=== PATIENT | male | born 1950 | race Hispanic/Latino ===

== ENCOUNTER 2020-06-05 12:13 | Emergency (ER) | payer OTHER, MEDICARE ==
[2020-06-05] MEDS ORDERED: LIDOCAINE 5% TOPICAL PATCH TP ONE (12:45)
[2020-06-05 12:46] LABS: BASOPHILS % (AUTO) 0.5 % (0.0-5.0); EOSINOPHILS % (AUTO) 0.9 % (0.0-8.0); HEMATOCRIT 50.8 % (42-54); MEAN CORPUSCULAR HEMOGLOBIN 28.4 pg (27.0-33.0); MEAN CORPUSCULAR HGB CONC 34.6 g/dL (32.0-36.0); MEAN CORPUSCULAR VOLUME 81.9 fL (79-99); NEUTROPHILS % (AUTO) 50.3 % (40.0-77.0); PLATELET COUNT (AUTO) 260 K/uL (130-400); RED CELL DISTRIBUTION WIDTH 12.4 % (11.0-15.5); WHITE BLOOD COUNT (AUTO) 10.8 K/uL (4.8-10.8)
[2020-06-05 13:04] LABS: INR 0.91 (0.85-1.15); PARTIAL THROMBOPLASTIN TIME 23.3 SEC (26.3-35.5); PROTHROMBIN TIME 9.9 SEC (9.6-11.6)
[2020-06-05 13:05] LABS: CREATININE 1.1 mg/dL (0.5-1.5); POTASSIUM 3.5 mmol/L (3.5-5.1)
[2020-06-05 13:10] LABS: ALBUMIN 3.8 g/dL (3.5-5.0); BILIRUBIN,TOTAL 0.5 mg/dL (0.2-1.0); TOTAL PROTEIN, SERUM 8.2 g/dL (6.0-8.3)
[2020-06-05] MEDS ORDERED: ACETAMINOPHEN 325 MG TAB ONE (15:04)
[2020-06-05] MEDS ORDERED: INSULIN HUMULIN R 100 UNIT/ML 3ML ONE (15:05)
[2020-06-05] MEDS ORDERED: SODIUM CHLORIDE 0.9% 500ML 500 ML IV ONE (15:06)
== END 2020-06-05 17:33 | disposition home or self-care (01) ==
LOC: EDH 12:13
DX: M25.512 Pain in left shoulder (principal); M25.511 Pain in right shoulder; M79.602 Pain in left arm; R10.12 Left upper quadrant pain; E11.65 Type 2 diabetes mellitus with hyperglycemia; E78.00 Pure hypercholesterolemia, unspecified; I10 Essential (primary) hypertension
CPT/HCPCS: 36415; 71045; 72072; 80053; 82550; 82948; 83690; 84484 ×2; 85025; 85610; 85730; 93005 ×2; 96374; 99285; J1815; J7040

== ENCOUNTER 2020-08-26 10:36 | Emergency (ER) | payer OTHER, MEDICARE ==
[2020-08-26 11:11] LABS: BASOPHILS % (AUTO) 0.9 % (0.0-5.0); EOSINOPHILS % (AUTO) 1.8 % (0.0-8.0); HEMATOCRIT 48.8 % (42-54); LYMPHOCYTES % (AUTO) 32.1 % (21.0-51.0); MEAN CORPUSCULAR VOLUME 82.7 fL (79-99); MONOCYTES % (AUTO) 8.5 % (3.0-13.0); NEUTROPHILS % (AUTO) 56.3 % (40.0-77.0); PLATELET COUNT (AUTO) 237 K/uL (130-400); RED CELL DISTRIBUTION WIDTH 12.5 % (11.0-15.5); WHITE BLOOD COUNT (AUTO) 7.8 K/uL (4.8-10.8)
[2020-08-26 11:13] LABS: CARBON DIOXIDE 30 mmol/L (21-32); CHLORIDE 100 mmol/L (101-111); CREATININE 0.9 mg/dL (0.5-1.5); GLOMERULAR FILTR. RATE CALC 89 mL/min (>60); GLUCOSE,RANDOM 256 mg/dL (70-105); SODIUM SERUM 139 mmol/L (136-145); UREA NITROGEN, BLOOD 17 mg/dL (7-18)
[2020-08-26] MEDS ORDERED: ACETAMINOPHEN-CODEINE 300/30MG TAB ONE (11:16)
[2020-08-26] MEDS ORDERED: KETOROLAC TROMETHAMINE 15MG/ML ONE (11:16)
[2020-08-26 11:17] LABS: ALANINE AMINOTRANSFERASE 19 U/L (12-78); ALBUMIN 3.9 g/dL (3.5-5.0); ASPARTATE AMINOTRANSFERASE 14 U/L (10-37); BILIRUBIN,TOTAL 0.6 mg/dL (0.2-1.0)
[2020-08-26 11:25] LABS: LIPASE < 50 U/L (114-286)
== END 2020-08-26 12:33 | disposition home or self-care (01) ==
LOC: EDH 10:36
DX: R10.84 Generalized abdominal pain (principal); E11.9 Type 2 diabetes mellitus without complications; E78.00 Pure hypercholesterolemia, unspecified; I10 Essential (primary) hypertension
CPT/HCPCS: 36415; 80053; 83690; 85025; 93005; 96374; 99284; J1885

== ENCOUNTER → 2020-10-13 | Outpatient (CLI) | payer OTHER, MEDICARE | END | disposition home or self-care (01) | LOC: OIH 11:04 | PROVIDERS: ATTEND Internal Medicine | DX: I10 Essential (primary) hypertension (principal); M54.5 Low back pain | CPT/HCPCS: 71046; 72070; 72100 ==

== ENCOUNTER 2022-02-01 21:05 | Inpatient (IN) | payer OTHER, MEDICARE ==
[~2022-02-01] VITALS: Ht 157.5 cm; Wt 70.7 kg
[2022-02-01] MEDS ORDERED: ONDANSETRON 4MG INJ ONE (21:07)
[2022-02-01] MEDS ORDERED: ACETAMINOPHEN 650 MG SUPPOSITORY RC ONE ×2 (21:08→21:30)
[2022-02-01] MEDS ORDERED: 0.9%NACL 1000ML 2,000 ML IV ONE (21:08)
[2022-02-01 21:22] LABS: BASOPHILS % (AUTO) 0.3 % (0.0-5.0); HEMATOCRIT 49.7 % (42-54); LYMPHOCYTES % (AUTO) 6.7 % (21.0-51.0); MEAN CORPUSCULAR HEMOGLOBIN 28.8 pg (27.0-33.0); MEAN CORPUSCULAR HGB CONC 34.8 g/dL (32.0-36.0); MEAN CORPUSCULAR VOLUME 82.8 fL (79-99); MONOCYTES % (AUTO) 8.7 % (3.0-13.0); NEUTROPHILS % (AUTO) 83.9 % (40.0-77.0); PLATELET COUNT (AUTO) 164 K/uL (130-400); RED CELL DISTRIBUTION WIDTH 12.7 % (11.0-15.5); WHITE BLOOD COUNT (AUTO) 12.7 K/uL (4.8-10.8)
[2022-02-01 21:28] LABS: APPEARANCE,URINE CLEAR (CLEAR); BILIRUBIN,URINE NEGATIVE (NEGATIVE); COLOR,URINE YELLOW (YELLOW); GLUCOSE, URINE (UA) NEGATIVE (NEGATIVE); KETONES,URINE 15 mg/dL (NEGATIVE); LEUKOCYTE ESTERASE ,URINE NEGATIVE (NEGATIVE); NITRATE,URINE NEGATIVE (NEGATIVE); OCCULT BLOOD,URINE NEGATIVE (NEGATIVE); PH,URINE 7.5 (5.0-8.0); PROTEIN,URINE NEGATIVE (NEGATIVE); UROBILINOGEN,URINE 0.2 mg/dL (0.2-1.0)
[2022-02-01] MEDS ORDERED: 0.9%NACL 1000ML 1,000 ML IV ONE (21:30)
[2022-02-01 21:37] LABS: CREATININE 1.1 mg/dL (0.5-1.5); POTASSIUM 4.1 mmol/L (3.5-5.1)
[2022-02-01 21:46] LABS: ALBUMIN 3.7 g/dL (3.5-5.0); BILIRUBIN,TOTAL 0.8 mg/dL (0.2-1.0)
[2022-02-01] MEDS ORDERED: ZOSYN 3.375GM +NS 50ML IV SCH (22:00)
[2022-02-01 22:13] LABS: ABG BASE EXCESS -5.7 mmol/L (-2.0-3.0); ABG HCO3 17.7 mmol/L (21.0-28.0); ABG OXYGEN SATURATION 94.5 % (95.0-99.0); ABG PCO2 30 mmHg (35-48)
[2022-02-01] MEDS ORDERED: IOHEXOL-350 75 ML VIAL IV ONE (22:23)
[2022-02-02] MEDS ORDERED: PHARMACY COMMUNICATION MISC SCH
[2022-02-02] MEDS ORDERED: ACETAMINOPHEN 650 MG SUPPOSITORY RC PRN
[2022-02-02] MEDS ORDERED: HYDRALAZINE 20MG/ML VIAL IV PRN
[2022-02-02] MEDS ORDERED: ONDANSETRON 4MG INJ IVP PRN
[2022-02-02] MEDS ORDERED: LABETALOL 20MG SYG IV PRN
[2022-02-02] MEDS ORDERED: CLONIDINE HCL 0.1 MG TABLET PO PRN
[2022-02-02] MEDS ORDERED: ACETAMINOPHEN 325 MG TAB PO PRN
[2022-02-02] MEDS ORDERED: MORPHINE 4 MG SYG IVP PRN
[2022-02-02] MEDS ORDERED: LACTULOSE 20 GM/30 ML UDCUP PO PRN
[2022-02-02] MEDS ORDERED: ERGOCALCIFEROL (VITAMIN D2) 50,000 UNIT CAPSULE PO ONE
[2022-02-02] MEDS ORDERED: TEMAZEPAM 15 MG CAPSULE PO PRN
[2022-02-02] MEDS ORDERED: PHARMACY COMMUNICATION**REMDESIVIR MISC SCH (00:30)
[2022-02-02] MEDS: CEFTRIAXONE 1G VIAL IVP SCH ×2 (00:59→12:06)
[2022-02-02] MEDS: DEXAMETHASONE SOD PHOSPHATE 4 MG/ML 1ML VIAL IVP SCH (00:59)
[2022-02-02] MEDS: 0.9%NACL 1000ML 1,000 ML IV SCH ×2 (00:59→10:00)
[2022-02-02] MEDS ORDERED: TAMS-1 PO (01:29)
[2022-02-02] MEDS ORDERED: ATOR40TA71 PO (01:29)
[2022-02-02] MEDS ORDERED: LISI20TA24 PO (01:29)
[2022-02-02] MEDS ORDERED: AMLO-258 PO (01:29)
[2022-02-02] MEDS ORDERED: AZITHROMYCIN 500MG+NS 250ML 250 ML ONE (02:16)
[2022-02-02] MEDS: AZITHROMYCIN 500MG+NS 250ML IVPB SCH (02:19)
[2022-02-02] MEDS ORDERED: IPRATROPIUM/ALBUTEROL SULFATE 3 ML SOLUTION IH ONE ×2 (02:25→06:20)
[2022-02-02] MEDS: IPRATROPIUM/ALBUTEROL SULFATE 3 ML SOLUTION IH SCH ×6 (02:28→22:42)
[2022-02-02 03:39] LABS: BASOPHILS % (AUTO) 0.2 % (0.0-5.0); HEMATOCRIT 46.5 % (42-54); LYMPHOCYTES % (AUTO) 3.9 % (21.0-51.0); MEAN CORPUSCULAR HEMOGLOBIN 28.6 pg (27.0-33.0); MEAN CORPUSCULAR HGB CONC 34.6 g/dL (32.0-36.0); MEAN CORPUSCULAR VOLUME 82.7 fL (79-99); MONOCYTES % (AUTO) 6.1 % (3.0-13.0); NEUTROPHILS % (AUTO) 89.3 % (40.0-77.0); PLATELET COUNT (AUTO) 165 K/uL (130-400); RED BLOOD CELL COUNT(AUTO) 5.62 MIL/uL (4.50-6.20); RED CELL DISTRIBUTION WIDTH 12.8 % (11.0-15.5); WHITE BLOOD COUNT (AUTO) 17.5 K/uL (4.8-10.8)
[2022-02-02 03:51] LABS: CREATININE 1.1 mg/dL (0.5-1.5); POTASSIUM 4.3 mmol/L (3.5-5.1)
[2022-02-02 04:01] LABS: ALBUMIN 3.1 g/dL (3.5-5.0); BILIRUBIN,TOTAL 0.6 mg/dL (0.2-1.0)
[2022-02-02 04:29] VITALS: BP 132/71
[2022-02-02] MEDS: INSULIN LISPRO 100 UNIT/ML 3ML SQ SCH ×4 (06:25→20:54)
[2022-02-02 07:51] VITALS: BP 141/84
[2022-02-02 08:28] LABS: ABG BASE EXCESS -3.3 mmol/L (-2.0-3.0); ABG HCO3 20.4 mmol/L (21.0-28.0); ABG OXYGEN SATURATION 95.8 % (95.0-99.0); ABG PCO2 33 mmHg (35-48)
[2022-02-02] MEDS ORDERED: DOXYCYCLINE 100MG+NS 250ML IV SCH (09:00)
[2022-02-02] MEDS ORDERED: SOLU-MEDROL 40MG VIAL IVP SCH (09:00)
[2022-02-02] MEDS ORDERED: ENOXAPARIN SODIUM 40 MG/0.4 ML SYRINGE SQ SCH (09:00)
[2022-02-02] MEDS ORDERED: ENOXAPARIN SODIUM 60 MG/0.6 ML SQ ONE (09:00)
[2022-02-02] MEDS: ZINC SULFATE 220 CAPSULE PO SCH (09:58)
[2022-02-02] MEDS: ENOXAPARIN SODIUM 40 MG/0.4 ML SYRINGE SQ SCH (09:58)
[2022-02-02] MEDS: ASCORBIC ACID 500 MG TAB PO SCH (09:59)
[2022-02-02] MEDS ORDERED: BENZOCAINE/MENTH/CETYLPYRD CL 1 EACH LOZENGE MM PRN (11:30)
[2022-02-02 12:00] VITALS: BP 143/86
[2022-02-02 16:00] VITALS: BP 157/74
[2022-02-02] MEDS ORDERED: GUAIFENESIN-DM 200/20 MG 10 ML PO PRN (18:00)
[2022-02-02 20:00] VITALS: BP 129/66
[2022-02-02] MEDS ORDERED: 0.9% NACL 250ML 250 ML ONE (23:47)
[2022-02-03] VITALS: BP 145/87
[2022-02-03] MEDS: AZITHROMYCIN 500MG+NS 250ML IVPB SCH (00:05)
[2022-02-03] MEDS: DEXAMETHASONE SOD PHOSPHATE 4 MG/ML 1ML VIAL IVP SCH (00:05)
[2022-02-03] MEDS: CEFTRIAXONE 1G VIAL IVP SCH ×2 (00:06→12:27)
[2022-02-03] MEDS: IPRATROPIUM/ALBUTEROL SULFATE 3 ML SOLUTION IH SCH ×5 (02:39→23:22)
[2022-02-03 04:00] VITALS: BP 120/66
[2022-02-03 04:28] LABS: BASOPHILS % (AUTO) 0.1 % (0.0-5.0); HEMATOCRIT 45.5 % (42-54); LYMPHOCYTES % (AUTO) 6.4 % (21.0-51.0); MEAN CORPUSCULAR HEMOGLOBIN 28.8 pg (27.0-33.0); MEAN CORPUSCULAR HGB CONC 34.5 g/dL (32.0-36.0); MEAN CORPUSCULAR VOLUME 83.5 fL (79-99); NEUTROPHILS % (AUTO) 90.1 % (40.0-77.0); PLATELET COUNT (AUTO) 146 K/uL (130-400); RED BLOOD CELL COUNT(AUTO) 5.45 MIL/uL (4.50-6.20); RED CELL DISTRIBUTION WIDTH 12.7 % (11.0-15.5); WHITE BLOOD COUNT (AUTO) 13.5 K/uL (4.8-10.8)
[2022-02-03 04:44] LABS: BILIRUBIN,TOTAL 0.3 mg/dL (0.2-1.0); POTASSIUM 4.1 mmol/L (3.5-5.1)
[2022-02-03] MEDS: INSULIN LISPRO 100 UNIT/ML 3ML SQ SCH ×4 (06:30→20:31)
[2022-02-03 07:00] VITALS: BP 134/78
[2022-02-03] MEDS: ASCORBIC ACID 500 MG TAB PO SCH (08:55)
[2022-02-03] MEDS: ENOXAPARIN SODIUM 40 MG/0.4 ML SYRINGE SQ SCH (08:55)
[2022-02-03] MEDS: ZINC SULFATE 220 CAPSULE PO SCH (08:55)
[2022-02-03 11:00] VITALS: BP 145/77
[2022-02-03 16:00] VITALS: BP 138/90
[2022-02-03 20:00] VITALS: BP 130/70
[2022-02-04] VITALS: BP 124/68
[2022-02-04] MEDS ORDERED: 0.9% NACL 250ML 250 ML ONE (00:10)
[2022-02-04] MEDS: DEXAMETHASONE SOD PHOSPHATE 4 MG/ML 1ML VIAL IVP SCH (00:16)
[2022-02-04] MEDS: CEFTRIAXONE 1G VIAL IVP SCH ×2 (00:16→11:52)
[2022-02-04] MEDS: AZITHROMYCIN 500MG+NS 250ML IVPB SCH (00:16)
[2022-02-04 04:00] VITALS: BP 144/67
[2022-02-04] MEDS: INSULIN LISPRO 100 UNIT/ML 3ML SQ SCH ×2 (06:22→11:30)
[2022-02-04] MEDS: IPRATROPIUM/ALBUTEROL SULFATE 3 ML SOLUTION IH SCH (06:37)
[2022-02-04 08:00] VITALS: BP 126/77
[2022-02-04] MEDS: ENOXAPARIN SODIUM 40 MG/0.4 ML SYRINGE SQ SCH (08:09)
[2022-02-04] MEDS: ZINC SULFATE 220 CAPSULE PO SCH (08:09)
[2022-02-04] MEDS: ASCORBIC ACID 500 MG TAB PO SCH (08:09)
== END 2022-02-04 15:45 | disposition left against medical advice (07) | DRG 177 ==
LOC: EDH 21:05 → EDHIP 23:22 → EDH 02-02 00:15 → 2AH 02-02 00:29
PROVIDERS: ADMIT Internal Medicine; ATTEND Internal Medicine
DX: U07.1 COVID-19 (principal); J12.82 Pneumonia due to coronavirus disease 2019; G93.41 Metabolic encephalopathy; J96.90 Respiratory failure, unspecified, unspecified whether with hypoxia or hypercapnia; E78.00 Pure hypercholesterolemia, unspecified; I10 Essential (primary) hypertension; E11.65 Type 2 diabetes mellitus with hyperglycemia; Z86.73 Personal history of transient ischemic attack (TIA), and cerebral infarction without residual deficits; Z53.29 Procedure and treatment not carried out because of patient's decision for other reasons
CPT/HCPCS: 36415; 36600; 70450; 71045; 71270; 80053; 81003; 82435; 82550; 82728; 82803; 82947; 82948; 83605; 83615; 84132; 84145; 84295; 84484; 85018; 85025; 85378; 86140; 86850; 86900; 86901; 87040; 87071; 87088; 87205; 87635; 87804; 87880; 93005; 94640; 94664; 94667; C9803; G0378; J0456; J0696; J1100; J1650; J2405; J2543; J7030; J7050; Q9967